=== PATIENT | male | born 1935 | race Caucasian/White ===

== ENCOUNTER 2016-10-06 06:36 | Observation (INO) | payer MEDICARE, OTHER ==
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
--- NOTE | 2016-10-06 07:33 | RAD ---
EXAM DESCRIPTION: XR CHEST 1 VIEW CLINICAL HISTORY: 81 y/o M, confusion, recent pna COMPARISON: 09/26/2016. TECHNIQUE: Frontal radiograph of the chest. FINDINGS: There is pulmonary vascular congestion. There is a right basilar airspace opacities or pleural effusion. The heart is enlarged. There is no pneumothorax. IMPRESSION: Pulmonary vascular congestion. Right basilar airspace opacity with right pleural effusion. Electronically signed by: Aric Weldon MD 10/06/2016 07:31
--- NOTE | 2016-10-06 08:58 | HP ---
CHIEF COMPLAINT: HISTORY OF PRESENT ILLNESS: This 81 year-old white male was admitted to the hospital after being brought by EMS by [facility] where he has been for the last 2 days after discharge from [facility] because of renal failure. He had been admitted to the hospital here on September 24 and had fairly significant congestive heart failure with the possibility of pneumonia but had progressive worsening kidney failure and was transferred to the care of Dr. Reynoso, rolling down machine operator in [place]. He was subsequently transferred after discharge to [facility] where he has been for about 2 days. He has been very weak, unable to get around. His is very attentive and now actually wants to take him home which may be somewhat difficult for her. He is brought to the Emergency Room today because the noted he was increasingly confused in a delirium state. He did not know where he was. He is having difficulty swallowing. In the Emergency Room he had evidence of worsening congestive heart failure with vascular congestion on chest x-ray. His eyes and face are significantly swollen which is reminiscent of a corticosteroid administration. The patient is placed in the hospital for observation and stabilization in an attempt to get him able to return to the snf. Awaiting Social Service and physical therapy evaluation to see if the patient would qualify for any additional assistance such as either hospice or rehabilitation hospital admission. PAST MEDICAL HISTORY: 1. Positive for hypertension/ 2. Chronic congestive heart failure with a grade diastolic dysfunction. Last ehrlichiosis in November of 2015 with an ejection fraction of 50%. 3. Advanced peripheral vascular disease with a stent in the left femoral artery in August of 2005. 4. History of diverticulosis. 5. Benign prostatic hypertrophy. 6. Past history of gastritis due to Advil and Anacin use. 9. Chronic lower back pain for which he takes [place] on a regular basis. 10. Osteoarthritis. 11. Diabetes mellitus type 2. 12. 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 13. History of lung cancer diagnosed in february of 2012 with a right upper lobe adenocarcinoma removed. 14. Chronic obstructive pulmonary disease. 15. Chronic opioid induced constipation. PAST SURGICAL HISTORY: 1. Appendectomy in 1949. 2. Right knee arthroscopic exam in 1994 and 1999. 3. Tonsillectomy and adenoidectomy in 194. 4. Stenting of the proximal left iliac femoral artery in August 2005 by . 5. Entropion repair in 1998. 6. L4 epidural steroid injection by Dr. Brannon in November and January of 2009. 7. Right and left common femoral artery local endarterectomies with right to left fem-fem bypass with a 5 mm [place] graft by Dr. Ambrosio on 02-07-09. 8. Right upper lobectomy wt extensive lymphadenectomy by Dr. Ambrosio on . CURRENT MEDICATIONS: Please refer to nurses notes for a complete list of verified home medications. ALLERGIES: MACROBID, CIALIS, IBUPROFEN. FAMILY HISTORY: CVAs and old-age. SOCIAL HISTORY: The patient is retired. He has worked in the [employer] business. He is and lives in [place]. History of smoking cigars. He quit in 1996. He drinks some alcohol on a daily basis. REVIEW OF SYSTEMS: GENERAL: Quite weak. The patient is noticeably confused thinking he is in [place] at this time. His face is noticeably swollen. RESPIRATORY: Significant shortness of breath, difficulty ambulating because of it. CARDIAC: No significant dysrhythmias or chest pain. ABDOMEN: Quite distended with obesity, chronic constipation. : No dysuria or hematuria. NEUROLOGICAL: No significant headaches but very weak and significant altered mental status according to the 's observations. PHYSICAL EXAMINATION: VITAL SIGNS: Afebrile. Pulse 77, blood pressure 142/63, pulse ox 97% on 2 liters, 96% on room air. Weight is 128.14 kilos with being 145 kilos yesterday. GENERAL: The patient is lying in bed. He keeps his eyes closed with his eyes somewhat edematous probably from corticosteroid administration. He is able to answer some questions but is grossly disoriented to place. He does know the name of his but does not know the date. HEENT: Fairly significant facial edema evident. NECK: Supple. Neck is pretty large which precludes being able to see his jugular venous distention. CHEST: Lungs have some diminished breath sounds with a few rhonchi, especially in the left base. CARDIOVASCULAR: Heart tones somewhat distant. ABDOMEN: Obese, soft, no significant organomegaly, masses or tenderness evident. Bowel tones are active. EXTREMITIES: About 2+ pitting edema noted in both lower extremities. Coloration somewhat pale. NEUROLOGIC: No focal neurological deficits. The patient is confused and disoriented and is able to answer some questions appropriately but others not,. He seems to be a little more oriented now that he is in the hospital than earlier at the snf. LABORATORY White count 14,900. Hemoglobin 10.1 with 86% neutrophils, coag shows INR of 1.6. Chemistries show potassium low at 3.0. BUN 14, creatinine 0.74, magnesium 1.7, troponin 0.03. Beta natriuretic peptide 541, TSH 4. Urinalysis is pending. Cultures pending. Chest x-ray does reveal evidence of pulmonary vascular congestion with some air space opacity on the right base with pleural effusion. No comparison is made to films performed on 09/26/16. ASSESSMENT: 1. Altered level of consciousness. 2. Significant congestive heart failure with pulmonary edema on chest x-ray and edema state of the lower extremities. 3. Generalized weakness with the patient unable to walk. 4. Hypokalemia requiring supplementation. 5. Chronic renal failure, improved. 6. Confusion state, probably related to underlying chronic dementia. 7. Right lower and right middle lobe infiltrates. Observe for possible pneumonia. 8. Dysphasia, probably sedimentation to his advanced disability. PLAN: Will request physical therapy and social service assistance for final disposition. The family wants to take him home but I don't feel that they are capable of handling him at this time unless he can get a lot stronger. Close observation. Will decrease his prednisone from 20 to only 10 daily. Fluid restrictions and potassium supplementation in progress. Continue with diuresis but on a gentle basis and try to get sample of records from recent hospitalization in [place] to give us a more accurate list of medications currently recommended. #[id number] [facility]
[2016-10-06] MEDS ORDERED: SODIUM CHLORIDE 0.9% (FLUSH) 10 ML SYG IV PRN ×2 (13:15→13:19)
[2016-10-06] MEDS ORDERED: MAGNESIUM HYDROXIDE 30 ML UD PO PRN (13:19)
[2016-10-06] MEDS ORDERED: HYDROcodone 5MG/APAP 325MG 1 EA TAB PO PRN (13:19)
[2016-10-06] MEDS ORDERED: KCL 20MEQ/WATER FOR INJ 100ML 20 MEQ in PREMIX BAG 1 BAG IVPB ONE (13:26)
[2016-10-06] MEDS ORDERED: IV SET AND CAP CHANGE INJ INJ SCH ×2 (13:30)
[2016-10-06] MEDS ORDERED: cefTRIAXone SODIUM 1 GM in SODIUM CHL 0.9% 50ML MIN-BAG+ 50 ML IVPB SCH (13:30)
[2016-10-06] MEDS: FUROSEMIDE INJ 40 MG/4 ML VIAL IV SCH ×2 (14:30→17:19)
[2016-10-06] MEDS: SODIUM CHLORIDE 0.9% (FLUSH) 10 ML SYG IV SCH ×2 (14:30→22:36)
[2016-10-06] MEDS: LACTOBACILLUS 1 TAB PO SCH ×2 (14:33→20:44)
[2016-10-06] MEDS: SPIRONOLACTONE 25 MG TAB PO SCH (14:33)
[2016-10-06] MEDS: GLIMEPIRIDE 2 MG TAB PO SCH (14:34)
[2016-10-06] MEDS: LEVALBUTEROL NEBS 1.25 MG/3 ML VIAL NEB SCH (17:15)
[2016-10-06] MEDS: PREGABALIN 25 MG CAP PO SCH (20:43)
[2016-10-06] MEDS: APIXABAN 2.5 MG TAB PO SCH (20:44)
[2016-10-06] MEDS: TAMSULOSIN 0.4 MG CAP PO SCH (20:44)
[2016-10-06] MEDS ORDERED: CEFUROXIME AXETIL TAB 250 MG TAB PO SCH (22:00)
[2016-10-06] MEDS: FUROSEMIDE 40 MG TAB PO SCH (22:13)
[2016-10-07] MEDS: LEVALBUTEROL NEBS 1.25 MG/3 ML VIAL NEB SCH ×3 (00:18→18:55)
[2016-10-07] MEDS: HYDROcodone 7.5MG/APAP 325MG 1 EA TAB PO PRN ×2 (04:23→21:00)
[2016-10-07] MEDS ORDERED: LEVOTHYROXINE SODIUM 0.075 MG TAB ONE (05:22)
[2016-10-07] MEDS ORDERED: OMEPRAZOLE CAP 20 MG CAP ONE (05:22)
[2016-10-07] MEDS: OMEPRAZOLE CAP 20 MG CAP PO SCH (06:09)
[2016-10-07] MEDS: LEVOTHYROXINE SODIUM 0.075 MG TAB PO SCH (06:37)
--- NOTE | 2016-10-07 08:37 | RAD ---
EXAM DESCRIPTION: X-RAY CHEST- One View CLINICAL HISTORY: Congestive heart failure. COMPARISON: 10/06/2016 TECHNIQUE: Single view of the chest. FINDINGS: There are no discrete air space infiltrates, pneumothoraces or pleural effusions. The pulmonary vascularity is normal. The cardiomediastinal silhouette is stable and suggestive of cardiomegaly. IMPRESSION: There are no acute lung parenchymal findings. Stable cardiomegaly. Electronically signed by: Emmett Hsieh MD 10/07/2016 08:35
[2016-10-07] MEDS: LACTOBACILLUS 1 TAB PO SCH ×2 (08:44→21:01)
[2016-10-07] MEDS: SPIRONOLACTONE 25 MG TAB PO SCH (08:46)
[2016-10-07] MEDS: APIXABAN 2.5 MG TAB PO SCH ×2 (08:47→21:00)
[2016-10-07] MEDS: CEFUROXIME AXETIL TAB 250 MG TAB PO SCH ×2 (08:47→21:00)
[2016-10-07] MEDS: CITALOPRAM HBR 20 MG TAB PO SCH (08:47)
[2016-10-07] MEDS: FUROSEMIDE 40 MG TAB PO SCH ×2 (08:48→17:14)
[2016-10-07] MEDS: LISINOPRIL 5 MG TAB PO SCH (08:48)
[2016-10-07] MEDS: predniSONE 10 MG TAB PO SCH (08:48)
[2016-10-07] MEDS: NEBIVOLOL HCL PO SCH (08:49)
[2016-10-07] MEDS ORDERED: POTASSIUM CHLORIDE 10 MEQ TAB PO SCH (09:30)
[2016-10-07] MEDS ORDERED: POTASSIUM CHLORIDE 20 MEQ TAB ONE (09:39)
[2016-10-07] MEDS: GLIMEPIRIDE 2 MG TAB PO SCH (12:02)
--- NOTE | 2016-10-07 14:41 | PN ---
DATE: 10/07/16 SUBJECTIVE: The patient is lying in the bed with his head elevated. He is able to respond to questions when stimulated. He otherwise spends a lot of his time resting, though is arousable. His is present and is helpful in his ongoing care. At this time, the family would wish that he not return to [facility], but go to [facility]. The family visited [facility] today and the process of evaluation has been initiated for that potential transfer. Also conditions of DNR as well as paperwork of a POA are to be also considered when Social Service is available either in our hospital here tomorrow or at [facility] tomorrow if he is transferred today. OBJECTIVE: VITAL SIGNS: Afebrile. Pulse 97. Blood pressure 150/64. Pulse oximetry 94% nasal cannula. LUNGS: A few rhonchi, but otherwise diminished breath sounds and much less rales in the bases noted today compared to yesterday. LABORATORY: White count up to 15,300, hemoglobin 9.9 decreased by hydration. Chemistries show potassium gone from 3 up to 3.2 with supplementation. Kidney function is normal. No cultures obtained. Repeat chest x-ray reveals almost complete clearing of the previously described pulmonary vascular congestion suggesting pulmonary edema from yesterday. Gentle diuresis and potassium supplementation has continued, but will need to be modified. ASSESSMENT: 1. Acute altered level of consciousness noted at [facility]. 2. Significant congestive heart failure with pulmonary edema on chest x-ray and edema state of the lower extremities of undetermined etiology. 3. Generalized weakness with the patient unable to walk. 4. Hypokalemia, improved slightly with supplementation. 5. Chronic renal failure, showing stabilization. 6. Confusion state, probably related to underlying chronic dementia. 7. Radiographic findings of significant pulmonary edema, probably from congestive heart failure with radiographic significant improvement. 8. Dysphagia with difficulty swallowing, probably secondary to advanced disability and ischemic encephalopathy. PLAN: Anticipate evaluation completion later today or tomorrow morning and transfer to [facility] when possible. Further Social Service intervention to assist the family with DNR and with health power of tests superintendent is encouraged. The patient will need to go home on low dose of potassium for a couple of weeks, then possibly cut back as Dr. Giordano continues to work with the patient and prevent over correction. Continue with gentle diuresis for a few days, then cut back even more with spironolactone to continue , but also decreasing doses of loop diuretic such as Lasix. Close followup in the future of electrolytes and kidney function are necessary to prevent deterioration of his symptoms as noted a couple of weeks ago on his trip to [facility]. Close followup and consider transfer to [facility] when paper work and evaluation by the [facility] is completed. #[id number] PATRICIA
[2016-10-07] MEDS: POTASSIUM CHLORIDE 10 MEQ TAB PO SCH (17:14)
[2016-10-07] MEDS: TAMSULOSIN 0.4 MG CAP PO SCH (21:00)
[2016-10-07] MEDS: PREGABALIN 25 MG CAP PO SCH (21:00)
[2016-10-08] MEDS: OMEPRAZOLE CAP 20 MG CAP PO SCH (06:22)
[2016-10-08] MEDS: LEVOTHYROXINE SODIUM 0.075 MG TAB PO SCH (06:22)
[2016-10-08 07:00] VITALS: TEMP 98; O2SAT 96
[2016-10-08] MEDS: POTASSIUM CHLORIDE 10 MEQ TAB PO SCH (08:02)
[2016-10-08] MEDS: LEVALBUTEROL NEBS 1.25 MG/3 ML VIAL NEB SCH ×2 (08:13)
[2016-10-08] MEDS: LACTOBACILLUS 1 TAB PO SCH (09:24)
[2016-10-08] MEDS: SPIRONOLACTONE 25 MG TAB PO SCH (09:24)
[2016-10-08] MEDS: CITALOPRAM HBR 20 MG TAB PO SCH (09:26)
[2016-10-08] MEDS: FUROSEMIDE 40 MG TAB PO SCH (09:26)
[2016-10-08] MEDS: LISINOPRIL 5 MG TAB PO SCH (09:26)
[2016-10-08] MEDS: NEBIVOLOL HCL PO SCH (09:27)
[2016-10-08] MEDS: predniSONE 10 MG TAB PO SCH (09:27)
[2016-10-08] MEDS: APIXABAN 2.5 MG TAB PO SCH (09:28)
[2016-10-08] MEDS: CEFUROXIME AXETIL TAB 250 MG TAB PO SCH (09:28)
[2016-10-08 10:38] VITALS: BP 131/65
--- NOTE | 2016-10-08 10:41 | DS ---
DISCHARGE DIAGNOSIS: 1. Acute altered level of consciousness noted at [facility], showing slight improvement. 2. Significant congestive heart failure with pulmonary edema radiographically and with clinical peripheral edema. 3. Generalized weakness with the patient unable to walk. 4. Significant hypokalemia, improved with supplementation. 5. Chronic renal failure, showing stabilization. 6. Confusion state, probably related to underlying chronic dementia. 7. Radiographic findings of significant pulmonary edema, with congestive heart failure as an etiology with radiographic significant improvement evident. 8. Dysphagia with difficulty swallowing, probably secondary to advanced disability and ischemic encephalopathy underlying. 9. History of recent pneumonia, now showing radiographic clearing. HISTORY OF PRESENT ILLNESS: This 81-year-old, white male was placed in the hospital for observation from the Emergency Room after being brought from [facility] because of altered mental status. His especially was instrumental in noticing the changes. He had arrived to [facility] two days prior after being discharged from [facility] in [place] because of renal failure, showing some improvement, pneumonia and congestive heart failure concerns. The patient was placed on a program of increased diuresis with fluid restrictions and was introduced to rehabilitation. Physical therapy realizes he is unable to fully care for himself and will require significant rehabilitation until he is able to assist his in his home care. LABORATORY: Initial white count was 14,900 and with corticosteroids administered, white count was up to 15,300 with 86% neutrophils. Hemoglobin 9.9. INR 1.6. Chemistries show initial potassium 3.0, up to 3.2 at discharge. BUN 11, creatinine 0.76, glucose 119, calcium 8.3, magnesium 1.7, troponin 0.03. Beta natriuretic peptide 541, TSH 4. Urinalysis showed some ketonuria and no cultures obtained. Repeat chest x-ray prior to discharge revealed clearing of previous pulmonary congestion and infiltrative processes. HOSPITAL COURSE: The patient remained significantly disabled with drowsiness, easy sleeping, and inability to walk or significantly care for himself at this time. He was ready for outpatient therapy. The had arranged for transfer to [facility] for ongoing rehabilitation. PLAN: Plan on discharge to [facility] for rehab with physical therapy assistance to continue. Dr. Giordano will resume primary care and hopefully will be able to see the patient within the next week. He will continue his home medications to which are added Lasix 20 mg daily for the next three weeks as well as KCL 20 mEq a day for the next three weeks. Prednisone 5 mg daily also to be used for the next three weeks with reevaluation of electrolytes and kidney function in approximately two to three weeks. His potassium and kidney functions need to be monitored to be sure that he does not have any accumulation of the potassium because of his history of chronic renal insufficiency. He will try mechanical soft diet and continue with routine prison orders. Return if not improving. #[id number] [facility]
[2016-10-08] MEDS: HYDROcodone 7.5MG/APAP 325MG 1 EA TAB PO PRN (10:51)
[2016-10-08] MEDS: GLIMEPIRIDE 2 MG TAB PO SCH (11:41)
[2016-10-09] MEDS ORDERED: FUROSEMIDE 40 MG TAB PO SCH (09:00)
== END 2016-10-08 11:58 | disposition home or self-care (01) ==
LOC: ER 06:36 → MS 08:56
PROVIDERS: ADMIT Emergency Medicine; ATTEND Emergency Medicine
DX: R40.4 Transient alteration of awareness (principal); E87.6 Hypokalemia; J18.9 Pneumonia, unspecified organism; I50.32 Chronic diastolic (congestive) heart failure; R41.0 Disorientation, unspecified; I12.9 Hypertensive chronic kidney disease with stage 1 through stage 4 chronic kidney disease, or unspecified chronic kidney disease; N18.9 Chronic kidney disease, unspecified; R13.10 Dysphagia, unspecified; I49.3 Ventricular premature depolarization; R53.1 Weakness; R06.02 Shortness of breath; G89.29 Other chronic pain; M54.5 Low back pain; N40.0 Benign prostatic hyperplasia without lower urinary tract symptoms; J44.9 Chronic obstructive pulmonary disease, unspecified; Z66 Do not resuscitate; Z79.84 Long term (current) use of oral hypoglycemic drugs; Z79.899 Other long term (current) drug therapy; Z88.3 Allergy status to other anti-infective agents; Z88.6 Allergy status to analgesic agent; Z88.8 Allergy status to other drugs, medicaments and biological substances; Z85.118 Personal history of other malignant neoplasm of bronchus and lung; Z90.49 Acquired absence of other specified parts of digestive tract; Z82.3 Family history of stroke; Z87.891 Personal history of nicotine dependence
CPT/HCPCS: 36415; 71010 ×2; 80048 ×2; 81001; 82550; 82553; 83880; 84443; 84484; 85025 ×2; 85610; 85730; 93005; 94640 ×5; 94760 ×6; G0378; J7512 ×2; J7614 ×5